=== PATIENT | male | born 1975 | race Caucasian/White ===

== ENCOUNTER 2019-05-26 22:12 | Emergency (ER) | payer OTHER ==
[2019-05-26 22:19] VITALS: TEMP 99.3
[2019-05-26 23:03] VITALS: RESP 18
--- NOTE | 2019-05-26 23:11 | ED ---
URI HPI - General Chief Complaint: Upper Respiratory Infection Stated Complaint: SOB Time Seen by Provider: 05/26/19 22:42 Source: patient Mode of arrival: ambulatory Limitations: no limitations - History of Present Illness Initial Comments: This patient is a 44-year-old man who presents to be evaluated for upper respiratory symptoms, including cough, congestion, fever and also myalgias. Patient states that he had coworker son had similar the coworker then also is manifesting symptoms. The patient states she has been using [id number] remedies without much relief. MD Complaint: fever, cough, nasal congestion Onset/Timin -: days(s) Severity: moderate Consistency: constant Improves With: nothing Worsens With: nothing Context: sick contacts Associated Symptoms: fever, myalgias, headache, nasal congestion, cough Treatments Prior to Arrival: "cold medicine" - Related Data Allergies Allergy/AdvReac Type Severity Reaction Status Date / Time No Known Allergies Allergy Verified 05/26/19 22:19 Review of Systems ROS Statement: Those systems with pertinent positive or pertinent negative responses have been documented in the HPI. ROS Other: All systems not noted in ROS Statement are negative. Constitutional: Reports: fever Eyes: Denies: eye pain ENT: Reports: congestion. Denies: ear pain, throat pain Respiratory: Reports: cough. Denies: dyspnea, wheezes, hemoptysis Cardiovascular: Denies: chest pain Gastrointestinal: Denies: abdominal pain, vomiting Genitourinary: Denies: dysuria, hematuria Musculoskeletal: Denies: back pain Skin: Denies: rash Neurological: Reports: headache. Denies: weakness, numbness, paresthesias Past Medical History Past Medical History: No Reported History History of Any Multi-Drug Resistant Organisms: None Reported Past Surgical History: No Surgical Hx Reported Past Psychological History: No Psychological Hx Reported Smoking Status: Current every day smoker Past Alcohol Use History: None Reported Past Drug Use History: None Reported General Exam Limitations: no limitations General appearance: alert, in no apparent distress Head exam: Present: atraumatic, normocephalic Eye exam: Present: normal appearance ENT exam: Present: normal oropharynx Neck exam: Present: normal inspection Respiratory exam: Present: normal lung sounds bilaterally. Absent: respiratory distress, wheezes, rales, rhonchi, stridor Cardiovascular Exam: Present: regular rate, normal rhythm, normal heart sounds. Absent: systolic murmur, diastolic murmur, rubs, gallop GI/Abdominal exam: Present: soft. Absent: distended, tenderness, guarding, rebound, rigid, mass Extremities exam: Present: normal inspection, normal capillary refill. Absent: pedal edema, calf tenderness Back exam: Present: normal inspection. Absent: CVA tenderness (R), CVA tenderness (L) Neurological exam: Present: alert Skin exam: Present: warm, dry, intact, normal color. Absent: rash Course Vital Signs 05/26/19 05/26/19 22:16 23:00 Temperature 99.3 F Pulse Rate 86 70 Respiratory 20 18 Rate Blood Pressure 170/107 152/89 O2 Sat by Pulse 98 96 Oximetry Medical Decision Making - Lab Data Lab Results 05/26/19 Range/Units 23:00 Influenza Type A RNA Not Detected (Not Detectd) Influenza Type B (PCR) Not Detected (Not Detectd) Disposition Clinical Impression: Viral infection Disposition: HOME SELF-CARE Condition: Good Instructions (If sedation given, give patient instructions): Viral Syndrome (ED) Is patient prescribed a controlled substance at d/c from ED?: No Referrals: None,Stated [Primary Care Provider] - 1-2 days
--- NOTE | 2019-05-26 23:21 | XR ---
EXAMINATION TYPE: XR chest 2V DATE OF EXAM: 05/26/2019 COMPARISON: NONE HISTORY: Cough and fever TECHNIQUE: FINDINGS: Heart and mediastinum are normal. Lungs are clear. Diaphragm is normal. Bony thorax appears normal. IMPRESSION: Normal chest. Normal heart.
[2019-05-27 00:40] VITALS: BP 107/70; PULSE 66
== END 2019-05-27 00:42 | disposition home or self-care (01) ==
LOC: EC 22:12
DX: B34.9 Viral infection, unspecified (principal); F17.200 Nicotine dependence, unspecified, uncomplicated
CPT/HCPCS: 71046; 87502; 99285

== ENCOUNTER 2020-05-19 13:08 | Observation (INO) | payer OTHER ==
[2020-05-19] MEDS ORDERED: ASPIRIN 81 MG PO STA (13:43)
[2020-05-19] MEDS ORDERED: NITROGLYCERIN OINT 1 INCH/GM PACKET TOPICAL STA (13:43)
--- NOTE | 2020-05-19 13:49 | ED ---
General Adult HPI - General Chief complaint: Shortness of Breath Stated complaint: Covid+, chest pain Time Seen by Provider: 05/19/20 13:10 Source: patient, RN notes reviewed, old records reviewed Mode of arrival: ambulatory Limitations: no limitations - History of Present Illness Initial comments: This is a 45-year-old male who presents emergency Department complaining of chest pain shortness of breath while exerting himself at work. Patient has been out of work the last 10 days since he was positive for COVID on May 10. Patient states she's been asymptomatic with COVID annually reason he got tested initially was because his son was positive for COVID. Patient states up until today he felt fine and then while at work doing his normal job he became short of breath and had anterior chest pain more or less diffusely. Patient denies any radiation of the pain. Patient denies any recent fever chills or cough. Patient denies any nausea patient denies any diaphoretic episodes. Patient denies any lightheadedness or dizziness. Patient denies any abdominal pain. Patient denies any swelling to the legs or calf tenderness. - Related Data Home Medications Medication Instructions Recorded Confirmed No Known Home Medications 05/19/20 05/19/20 Allergies Allergy/AdvReac Type Severity Reaction Status Date / Time No Known Allergies Allergy Verified 05/19/20 14:47 Review of Systems ROS Statement: Those systems with pertinent positive or pertinent negative responses have been documented in the HPI. ROS Other: All systems not noted in ROS Statement are negative. Past Medical History Past Medical History: No Reported History History of Any Multi-Drug Resistant Organisms: None Reported Past Surgical History: No Surgical Hx Reported Past Psychological History: No Psychological Hx Reported Smoking Status: Current every day smoker Past Alcohol Use History: None Reported Past Drug Use History: None Reported General Exam - General Exam Comments Initial Comments: GENERAL: Patient is well-developed and well-nourished. Patient is nontoxic and well- hydrated and is in mild distress. ENT: Neck is soft and supple. No significant lymphadenopathy is noted. Oropharynx is clear. Moist mucous membranes. Neck has full range of motion without eliciting any pain EYES: The sclera were anicteric and conjunctiva were pink and moist. Extraocular movements were intact and pupils were equal round and reactive to light. Eyelids were unremarkable. PULMONARY: Unlabored respirations. Good breath sounds bilaterally. No audible rales rhonchi or wheezing was noted. CARDIOVASCULAR: There is a regular rate and rhythm without any murmurs gallops or rubs. ABDOMEN: Soft and nontender with normal bowel sounds. SKIN: Skin is clear with no lesions or rashes and otherwise unremarkable. NEUROLOGIC: Patient is alert and oriented x3. Cranial nerves II through XII are grossly intact. Motor and sensory are also intact. Normal speech, volume and content. Symmetrical smile. MUSCULOSKELETAL: Normal extremities with adequate strength and full range of motion. No lower extremity swelling or edema. No calf tenderness. LYMPHATICS: No significant lymphadenopathy is noted PSYCHIATRIC: Normal psychiatric evaluation. Limitations: no limitations Course Vital Signs 05/19/20 13:13 Temperature 98.1 F Pulse Rate 96 Respiratory 22 Rate Blood Pressure 156/98 O2 Sat by Pulse 96 Oximetry Medical Decision Making - Medical Decision Making EKG shows normal sinus rhythm at 88 bpm [place] interval 150 QRS is 84 QT interval 358 QTC is 433. Patient's EKG shows no ST segment elevation or depression. Patient thought that nitroglycerin took away his pain. Patient's chest x-ray shows no acute abnormality. I started the patient on heparin this is unstable angina. I spoke with some physicians agreed to admit the patient admitted the patient and I wrote admitting orders and consult cardiology continued heparin and aspirin Nitropaste on the floor. - Lab Data Result diagrams: 05/19/20 13:55 05/19/20 13:55 Lab Results 05/19/20 05/19/20 05/19/20 Range/Units 13:55 13:55 13:55 WBC 8.3 (3.8-10.6) k/uL RBC 5.12 (4.30-5.90) m/uL Hgb 16.1 (13.0-17.5) gm/dL Hct 44.7 (39.0-53.0) % MCV 87.3 (80.0-100.0) fL MCH 31.5 (25.0-35.0) pg MCHC 36.1 (31.0-37.0) g/dL RDW 12.4 (11.5-15.5) % Plt Count 170 (150-450) k/uL MPV 8.3 Neutrophils % 75 % Lymphocytes % 18 % Monocytes % 5 % Eosinophils % 1 % Basophils % 0 % Neutrophils # 6.2 (1.3-7.7) k/uL Lymphocytes # 1.5 (1.0-4.8) k/uL Monocytes # 0.4 (0-1.0) k/uL Eosinophils # 0.1 (0-0.7) k/uL Basophils # 0.0 (0-0.2) k/uL PT 9.7 (9.0-12.0) sec INR 0.9 (<1.2) APTT 22.2 (22.0-30.0) sec D-Dimer 0.18 (<0.60) mg/L FEU Sodium 136 L (137-145) mmol/L Potassium 4.5 (3.5-5.1) mmol/L Chloride 103 (98-107) mmol/L Carbon Dioxide 23 (22-30) mmol/L Anion Gap 10 mmol/L BUN 25 H (9-20) mg/dL Creatinine 0.95 (0.66-1.25) mg/dL Est GFR (CKD-EPI)AfAm >90 (>60 ml/min/1.73 sqM) Est GFR (CKD-EPI)NonAf >90 (>60 ml/min/1.73 sqM) Glucose 113 H (74-99) mg/dL Calcium 9.7 (8.4-10.2) mg/dL Magnesium 2.1 (1.6-2.3) mg/dL Total Bilirubin 0.3 (0.2-1.3) mg/dL AST 28 (17-59) U/L ALT 25 (4-49) U/L Alkaline Phosphatase 88 (38-126) U/L Troponin I (0.000-0.034) ng/mL Total Protein 7.2 (6.3-8.2) g/dL Albumin 4.4 (3.5-5.0) g/dL 05/19/20 Range/Units 13:55 WBC (3.8-10.6) k/uL RBC (4.30-5.90) m/uL Hgb (13.0-17.5) gm/dL Hct (39.0-53.0) % MCV (80.0-100.0) fL MCH (25.0-35.0) pg MCHC (31.0-37.0) g/dL RDW (11.5-15.5) % Plt Count (150-450) k/uL MPV Neutrophils % % Lymphocytes % % Monocytes % % Eosinophils % % Basophils % % Neutrophils # (1.3-7.7) k/uL Lymphocytes # (1.0-4.8) k/uL Monocytes # (0-1.0) k/uL Eosinophils # (0-0.7) k/uL Basophils # (0-0.2) k/uL PT (9.0-12.0) sec INR (<1.2) APTT (22.0-30.0) sec D-Dimer (<0.60) mg/L FEU Sodium (137-145) mmol/L Potassium (3.5-5.1) mmol/L Chloride (98-107) mmol/L Carbon Dioxide (22-30) mmol/L Anion Gap mmol/L BUN (9-20) mg/dL Creatinine (0.66-1.25) mg/dL Est GFR (CKD-EPI)AfAm (>60 ml/min/1.73 sqM) Est GFR (CKD-EPI)NonAf (>60 ml/min/1.73 sqM) Glucose (74-99) mg/dL Calcium (8.4-10.2) mg/dL Magnesium (1.6-2.3) mg/dL Total Bilirubin (0.2-1.3) mg/dL AST (17-59) U/L ALT (4-49) U/L Alkaline Phosphatase (38-126) U/L Troponin I <0.012 (0.000-0.034) ng/mL Total Protein (6.3-8.2) g/dL Albumin (3.5-5.0) g/dL Critical Care Time Critical Care Time: Yes Total Critical Care Time: 35 Disposition Clinical Impression: Unstable angina Disposition: ADMITTED IP TO THIS [facility] Referrals: None,Stated [Primary Care Provider] - 1-2 days Time of Disposition: 14:54
[2020-05-19 14:14] LABS: Basophils % (A) 0 %; Eosinophils # (A) 0.1 k/uL (0-0.7); Eosinophils % (A) 1 %; HCT 44.7 % (39.0-53.0); HGB 16.1 gm/dL (13.0-17.5); Lymphocytes # (A) 1.5 k/uL (1.0-4.8); Lymphocytes % (A) 18 %; MCH 31.5 pg (25.0-35.0); MCHC 36.1 g/dL (31.0-37.0); MCV 87.3 fL (80.0-100.0); Mean Platelet Volume 8.3; Monocytes # (A) 0.4 k/uL (0-1.0); Monocytes % (A) 5 %; Neutrophils # (A) 6.2 k/uL (1.3-7.7); Neutrophils % (A) 75 %; Platelet Count 170 k/uL (150-450); RBC 5.12 m/uL (4.30-5.90); RDW 12.4 % (11.5-15.5); WBC 8.3 k/uL (3.8-10.6)
--- NOTE | 2020-05-19 14:14 | XR ---
EXAMINATION TYPE: XR chest 2V DATE OF EXAM: 05/19/2020 COMPARISON: 05/26/2019 HISTORY: Chest pain TECHNIQUE: Frontal and lateral views of the chest are obtained. FINDINGS: There is no focal air space opacity. No evidence for pneumothorax. No pleural effusion. The cardiac silhouette size is within normal limits. The osseous structures are grossly intact. IMPRESSION: 1. No acute cardiopulmonary process.
[2020-05-19 14:26] LABS: ALT 25 U/L (4-49); AST 28 U/L (17-59); African American GFR (CKD) >90 (>60 ml/min/1.73 sqM); Albumin 4.4 g/dL (3.5-5.0); Alkaline Phosphatase 88 U/L (38-126); Anion Gap 10 mmol/L; Blood Urea Nitrogen 25 mg/dL (9-20); Calcium 9.7 mg/dL (8.4-10.2); Carbon Dioxide 23 mmol/L (22-30); Chloride 103 mmol/L (98-107); Glucose 113 mg/dL (74-99); Magnesium 2.1 mg/dL (1.6-2.3); Non-African American GFR(CKD) >90 (>60 ml/min/1.73 sqM); Potassium 4.5 mmol/L (3.5-5.1); Sodium 136 mmol/L (137-145); Total Bilirubin 0.3 mg/dL (0.2-1.3); Total Protein 7.2 g/dL (6.3-8.2)
[2020-05-19 14:36] LABS: D-Dimer 0.18 mg/L FEU (<0.60); INR 0.9 (<1.2); Partial Thromboplastin Time 22.2 sec (22.0-30.0); Prothrombin Time 9.7 sec (9.0-12.0)
[2020-05-19] MEDS ORDERED: HEPARIN SODIUM,PORCINE 5,000 UNIT/ML 1 ML VIAL IV ONE (14:53)
[2020-05-19] MEDS ORDERED: NITROGLYCERIN SL TABS 0.4 MG TAB SUBLINGUAL PRN (14:55)
[2020-05-19] MEDS ORDERED: HEPARIN SOD,PORK IN 0.45% NACL 25,000 UNIT in 0.45% NACL 1 250ML.BAG IV SCH (15:00)
[2020-05-19] MEDS ORDERED: ACETAMINOPHEN TAB 325 MG TAB PO PRN (19:42)
[2020-05-19] MEDS ORDERED: NALOXONE 0.4 MG/ML 1 ML VIAL IV PRN (19:42)
--- NOTE | 2020-05-19 19:42 | P.HPIM ---
History of Present Illness H&P Date: 05/19/20 (delayed charting seen at 1600 ) Chief Complaint: chest pain Patient is a 45 yo CM with tobacco abuse, obesity, and family hx of early conornary artery disease who presented to the hospital with complaints of chest pain. In the ER he underwent an extensive evaluation. On arrival he was lightly hypertensive with a blood pressure of 156/98. Initial laboratory analysis demonstrated a sodium of 136, BUN 25, glucose 113, troponin was negative. D-dimer negative. Chest x-ray showed no acute process. EKG did not demonstrate any signs of ischemia. He had a Nitropatch placed in the ER which relieved his chest discomfort. Arrangements were made for observation. Of note patient had covert approximately 10 days ago and just returned to work today. Patient seen and examined at bedside. He reports that for the last 10 days he has been off of work due to Covid. He was initially asymptomatic and got tested because his son was positive. Today he returned to work. He was up and ambulating and noted some shortness of breath. As he continued to exert himself he had increasing shortness of breath accompanied by an odd sensation in his chest. He does not describe it as overt chest pain but more of a numbness or constricting-type feeling. He reports that he was slightly lightheaded. He felt his pulse due to palpitations and it was fast at approximately 118. He was also drenched in sweat. He denies any numbness or tingling down his arms or up into his jaw. He then presented to the ER for further evaluation as he was worried about his Covid. Repeat Covid antigen testing in the ER was negative. Chest pain and shortness of breath has since resolved. He is not currently following with family physician. Review of Systems Pertinent positives and negatives as discussed in HPI, a complete review of systems was performed and all other systems are negative. Past Medical History Past Medical History: No Reported History History of Any Multi-Drug Resistant Organisms: None Reported Past Surgical History: No Surgical Hx Reported Past Psychological History: No Psychological Hx Reported Smoking Status: Current every day smoker Past Alcohol Use History: None Reported Past Drug Use History: None Reported Additional History: Has smoked one pack per day since age 11 - Past Family History Father Additional Family Medical History / Comment(s): Coronary artery bypass grafting in his 50s. Medications and Allergies Home Medications Medication Instructions Recorded Confirmed Type No Known Home Medications 05/19/20 05/19/20 History Allergies Allergy/AdvReac Type Severity Reaction Status Date / Time No Known Allergies Allergy Verified 05/19/20 14:47 Physical Exam Osteopathic Statement: *. No significant issues noted on an osteopathic structural exam other than those noted in the History and Physical/Consult. Vitals: Vital Signs Temp Pulse Resp BP Pulse Ox 05/19/20 16:26 69 18 119/66 98 05/19/20 15:30 77 18 124/72 98 05/19/20 13:13 98.1 F 96 22 156/98 96 Intake and Output 05/19/20 05/19/20 05/19/20 06:59 14:59 22:59 Other: Weight 113.398 kg General: non toxic, no distress, appears at stated age Derm: warm, dry Head: atraumatic, normocephalic, symmetric Eyes: EOMI, no lid lag, anicteric sclera, pupils equal round reactive to light ENT: Nose and ears atraumatic, no thrush, no pharyngeal erythema Neck: No thyromegaly, no cervical lymphadenopathy, trachea midline, supple Mouth: no lip lesion, mucus membranes moist Cardiovascular: S1S2 reg, no murmur, positive posterior tibial pulse bilateral, no edema, capillary refill less than 2 seconds Lungs: clear to ascultation bilateral, no ronchi, no rales, no wheeze, no accessory muscle use Abdominal: soft, nontender to palpation, no guarding, no appreciable organomegaly, normal bowel sounds Ext: no gross muscle atrophy, muscle strength muscle strength 5 out of 5 in all 4 extremities, no contractures Neuro: CN II-XI grossly intact, light touch intact all 4 extremities, finger to nose within normal limits, Psych: Alert, oriented, appropriate affect Results CBC & Chem 7: 05/19/20 13:55 05/19/20 13:55 Labs: Abnormal Lab Results - Last 24 Hours (Table) 05/19/20 Range/Units 13:55 Sodium 136 L (137-145) mmol/L BUN 25 H (9-20) mg/dL Glucose 113 H (74-99) mg/dL Chest x-ray: report reviewed Thrombosis Risk Factor Assmnt - DVT/VTE Prophylaxis DVT/VTE Prophylaxis: Low risk, early ambulation encouraged Assessment and Plan Assessment: Chest pain and the recent starting of CovID19 -Trend troponins -Aspirin -Heparin drip -Nitro ointment -Telemetry -Cardiology consultation -Nothing by mouth after midnight Tobacco abuse -Cessation -Nicotine replacement Obesity with BMI 35.9 -Has not had follow-up with health care will screen with lipid profile and hemoglobin A1c. Social stressor -No insurance -[facility] The patient is placed in observation with an anticipated less than 2 midnight stay for evaluation of chest pain. DVT prophylaxis: SCDs Discussed with: patient, ed physician Anticipated discharge date: in AM Anticipated discharge place: Home A total of 35 minutes was spent on the care of this complex patient more than 50% of the time was spent in counseling and care coordination.
[2020-05-19] MEDS: NITROGLYCERIN OINT 1 INCH/GM PACKET TOPICAL SCH (21:52)
[2020-05-20] MEDS: NITROGLYCERIN OINT 1 INCH/GM PACKET TOPICAL SCH ×2 (00:26→05:36)
[2020-05-20] MEDS ORDERED: HEPARIN SODIUM,PORCINE 5,000 UNIT/ML 1 ML VIAL IV PRN (00:27)
[2020-05-20 02:55] VITALS: TEMP 98
[2020-05-20 06:34] LABS: Cholesterol 182 mg/dL (<200); HDL Cholesterol 47 mg/dL (40-60); LDL Cholesterol,Calculated 105 mg/dL (0-99); Magnesium 2.3 mg/dL (1.6-2.3); Triglycerides 148 mg/dL (<150)
[2020-05-20 07:58] VITALS: BP 136/63; PULSE 65; RESP 16
[2020-05-20] MEDS ORDERED: ASPIRIN 325 MG TAB PO SCH (09:00)
--- NOTE | 2020-05-20 10:46 | P.CRDCN ---
History of Present Illness History of present illness: HISTORY OF PRESENTING ILLNESS This is a pleasant 45-year-old male past medical history significant for nicotine dependence (smokes 1ppd), family history of CAD (father had OK in his 50s). He does not follow with a pourer off We have been asked to see in consultation for chest pain. Patient states that he was Covid positive on May 10 at [facility]. Believes it was from his son who also tested positive. He states that he started to go back to work yesterday, he works in an auto shop. 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 He states he rested. Diaphoresis resolved, but his palpitations persisted. About an hour later he started having some her mid chest pressure, nonradiating. His chest pressure did increase with some activity at work. He did feel anxious thinking he may have COVID again. He did feel some shortness of breath. He continued to finish work. He checked his pulse ox and his heart rate was fast around 118. He states his palpitation feeling continued for a total of 4 hours from the start of the event and did not subside, so he decided to present to the emergency department. Patient denies any current cough, chest pain, shortness of breath, lightheadedness, dizziness. He denies symptoms of orthopnea, PND. He denies alcohol use, illicit drug use. Denies history of OK, stroke, diabetes, hypertension. Denies ever having a cardiac catheterization before. EKG on arrival revealed normal sinus rhythm, HR 88, no significant ST-T wave abnormali ties. Second EKG also revealed normal sinus rhythm, HR 60, no significant ST-T wave abnormalities. Chest x-ray with no acute cardiopulmonary process. Patient's COVID-19 test was negative on arrival. Laboratory data reviewed, troponins negative 3, d-dimer 0.18, potassium 4.5, magnesium 2.1, sodium 136, creatinine 0.95, WBC 8.3, hemoglobin 16.9, platelets 170 Vital signs blood pressure 136/63, heart rate 65, afebrile, 96% on room air. Telemetry reviewed patient in sinus rhythm. Patient does not take any cardiac medications. REVIEW OF SYSTEMS At the time of my exam: CONSTITUTIONAL: +diaphoresis Denies fever or chills. CARDIOVASCULAR: +chest pain, + palpitations, +shortness of breath. Denies orthopnea, PND RESPIRATORY: Denies cough. GASTROINTESTINAL: Denies abdominal pain, diarrhea, constipation, nausea or vomiting. MUSCULOSKELETAL: Denies myalgias. NEUROLOGIC: Denies numbness, tingling, headacbe or weakness. ENDOCRINE: Denies fatigue, weight change, polydipsia or polyurina. GENITOURINARY: Denies burning, hematuria or urgency with micturation. HEMATOLOGIC: Denies history of anemia or bleeding. PHYSICAL EXAMINATION CONSTITUTIONAL: Calm, No apparent distress. HEENT: Head is normocephalic. Pupils are equal, round. Sclerae anicteric. Mucous membranes of the mouth are moist. No JVD. No carotid bruit. CHEST EXAMINATION: Lungs are clear to auscultation. No chest wall tenderness is noted on palpation or with deep breathing. HEART EXAMINATION: Regular rate and rhythm. S1, S2 heard. No murmurs, gallops or rub. ABDOMEN: Soft, nontender. Positive bowel sounds. EXTREMITIES: 2+ peripheral pulses, no lower extremity edema and no calf tenderness. SKIN: intact NEUROLOGIC EXAMINATION: Patient is awake, alert and oriented x3. ASSESSMENT Chest pain - atypical, acute coronary event ruled out- troponin negative x 3, EKG sinus rhythm with no significant ST-T wave abnormalities Palpitations PLAN -2D echo -Exercise stress echo -If no acute findings, Will place Heart monitor on discharge to rule out any arrhythmia causing patient's palpitations and symptoms. Patient will follow up in the office with Dr. Cruz. Nurse Practitioner note has been reviewed, I agree with a documented findings and plan of care. Patient was seen and examined. Past Medical History Past Medical History: No Reported History History of Any Multi-Drug Resistant Organisms: None Reported Past Surgical History: No Surgical Hx Reported Past Psychological History: No Psychological Hx Reported Smoking Status: Current every day smoker Past Alcohol Use History: None Reported Past Drug Use History: None Reported - Past Family History Father Additional Family Medical History / Comment(s): Coronary artery bypass grafting in his 50s. Medications and Allergies Home Medications Medication Instructions Recorded Confirmed Type No Known Home Medications 05/19/20 05/19/20 History Allergies Allergy/AdvReac Type Severity Reaction Status Date / Time No Known Allergies Allergy Verified 05/19/20 14:47 Physical Exam Vitals: Vital Signs Temp Pulse Pulse Resp BP BP Pulse Ox 05/20/20 02:59 78 05/20/20 01:48 98.0 F 78 18 114/74 98 05/19/20 20:50 97.5 F L 71 118/70 96 05/19/20 20:00 98.2 F 75 18 116/60 98 05/19/20 16:26 69 18 119/66 98 05/19/20 15:30 77 18 124/72 98 05/19/20 13:13 98.1 F 96 22 156/98 96 Intake and Output 05/19/20 05/20/20 05/20/20 22:59 06:59 14:59 Intake Total 81.163 Balance 81.163 Intake: Intake, IV Titration 81.163 Amount Heparin Sod,Pork in 0.45% 81.163 NaCl 25,000 unit In 0.45 % NaCl 1 250ml.bag @ 8.8 UNITS/KG/HR 9.979 mls/hr IV .Q24H [facility] Rx#: [id number] Other: Voiding Method Toilet Toilet # Voids 1 Weight 113.398 kg Results 05/19/20 13:55 05/19/20 13:55 Cardiac Enzymes 05/19/20 05/19/20 05/19/20 Range/Units 13:55 13:55 17:51 AST 28 (17-59) U/L Troponin I <0.012 <0.012 (0.000-0.034) ng/mL 05/19/20 Range/Units 20:36 AST (17-59) U/L Troponin I <0.012 (0.000-0.034) ng/mL Coagulation 05/19/20 05/19/20 05/20/20 Range/Units 13:55 22:53 05:15 PT 9.7 (9.0-12.0) sec APTT 22.2 26.3 45.7 H (22.0-30.0) sec Lipids 05/20/20 Range/Units 05:15 Triglycerides 148 (<150) mg/dL Cholesterol 182 (<200) mg/dL HDL Cholesterol 47 (40-60) mg/dL CBC 05/19/20 Range/Units 13:55 WBC 8.3 (3.8-10.6) k/uL RBC 5.12 (4.30-5.90) m/uL Hgb 16.1 (13.0-17.5) gm/dL Hct 44.7 (39.0-53.0) % Plt Count 170 (150-450) k/uL Comprehensive Metabolic Panel 05/19/20 Range/Units 13:55 Sodium 136 L (137-145) mmol/L Potassium 4.5 (3.5-5.1) mmol/L Chloride 103 (98-107) mmol/L Carbon Dioxide 23 (22-30) mmol/L BUN 25 H (9-20) mg/dL Creatinine 0.95 (0.66-1.25) mg/dL Glucose 113 H (74-99) mg/dL Calcium 9.7 (8.4-10.2) mg/dL AST 28 (17-59) U/L ALT 25 (4-49) U/L Alkaline Phosphatase 88 (38-126) U/L Total Protein 7.2 (6.3-8.2) g/dL Albumin 4.4 (3.5-5.0) g/dL Current Medications Generic Name Dose Route Start Last Admin Trade Name Freq PRN Reason Stop Dose Admin Acetaminophen 650 mg 05/19/20 19:42 Acetaminophen Tab 325 Mg Tab PO Q6HR PRN Mild Pain or Fever > 100.5 Aspirin 325 mg 05/20/20 09:00 Aspirin 325 Mg Tab PO DAILY [facility] Heparin Sodium (Porcine) 0 unit 05/20/20 00:27 05/20/20 00:39 Heparin Sodium,Porcine 5,000 Unit/Ml 1 Ml Vial IV 4,000 unit PER PROTOCOL PRN Administration Low PTT Protocol Heparin Sodium/Sodium Chloride 250 mls @ 9.979 mls/hr 05/19/20 15:00 05/20/20 00:33 25,000 unit/ Sodium Chloride IV 11.8 units/kg/hr .Q24H LIUDMILA 13.381 mls/hr Titration Protocol 8.8 UNITS/KG/HR Naloxone HCl 0.2 mg 05/19/20 19:42 Naloxone 0.4 Mg/Ml 1 Ml Vial IV Q2M PRN Opioid Reversal Nitroglycerin 0.4 mg 05/19/20 14:55 Nitroglycerin Sl Tabs 0.4 Mg Tab SUBLINGUAL Q5M PRN Chest Pain Nitroglycerin 1 inch 05/19/20 18:00 05/20/20 05:36 Nitroglycerin Oint 1 Inch/Gm Packet TOPICAL Not Given Q6HR [facility] Intake and Output 05/19/20 05/20/20 05/20/20 22:59 06:59 14:59 Intake Total 81.163 Balance 81.163 Intake: Intake, IV Titration 81.163 Amount Heparin Sod,Pork in 0.45% 81.163 NaCl 25,000 unit In 0.45 % NaCl 1 250ml.bag @ 8.8 UNITS/KG/HR 9.979 mls/hr IV .Q24H [facility] Rx#: [id number] Other: Voiding Method Toilet Toilet # Voids 1 Weight 113.398 kg 05/19/20 13:55 05/19/20 13:55
--- NOTE | 2020-05-20 12:11 | P.STRESS ---
- Stress Test Note Stress Test Results/Findings: Exam Performed: stress echo exercise Exam Date: 05/20/20 Reason for Exam: CHEST PAIN Height: 5 ft 10 in Weight: 113.4 kg Protocol: STRESS ECHO Stage: 2 Duration of Exercise: 7:30 Resting Heart Rate: 87 Resting Blood Pressure: 124/57 Maximum Achieved Heart Rate: 159 Maximum Achieved Blood Pressure: 172/74 85% PMHR: 149 100% PMHR: 175 METS: 9.1 Technologist Comment: Stress Test Results/Findings: This is a 45-year-old gentleman with history of recent cold infection was admitted to the hospital with complaints of palpitations and chest pain and shortness of breath. Stress data: Baseline EKG showed sinus rhythm with normal DE and QRS duration. Blood pressure at rest is 03/23/1956 with a pulse rate of 87. Patient walked on a Attila protocol for 7 minutes and 30 seconds reaching a maximum heart rate of 159 with a blood pressure 172/74. EKGs taken during his after exercise did not reveal any significant changes from baseline. Patient did not experience any chest pain. Echo data: Baseline echo images show normal wall motion and thickening. Exercise echo images showed augmentation of wall motion and thickening in all segments. Final impression: #1. Negative stress test #2. Negative stress echo.
[2020-05-20 12:43] LABS: Hemoglobin A1C 4.6 % (4.0-6.0)
--- NOTE | 2020-05-20 12:52 | ECHOF ---
Referral Reason:chest pain MEASUREMENTS -------- HEIGHT: 182.9 cm WEIGHT: 113.4 kg BP: RVIDd: 3.1 cm (< 3.3) IVSd: 1.3 cm (0.6 - 1.1) LVIDd: 4.7 cm (3.9 - 5.3) LVPWd: 1.3 cm (0.6 - 1.1) IVSs: 1.6 cm LVIDs: 3.6 cm LVPWs: 1.3 cm LAESV Index (A-L): 21.21 ml/m Ao Diam: 3.0 cm (2.0 - 3.7) AV Cusp: 2.2 cm (1.5 - 2.6) MV EXCURSION: 23.225 mm (> 18.000) MV EF SLOPE: 109 mm/s (70 - 150) EPSS: 0.5 cm MV E Alonso: 0.81 m/s MV DecT: 135 ms MV A Alonso: 0.50 m/s MV E/A Ratio: 1.61 RAP: 5.00 mmHg RVSP: 18.61 mmHg FINDINGS -------- Sinus rhythm. Pt had Covid 05/18. LV size, wall thickness and systolic function are normal, with an EF greater than 55%. The left loc tricular size is normal. The right ventricle is normal in size. Normal LA size by volume 22+/-6 ml/m2. The right atrial size is normal. There is mild aortic valve sclerosis. There is no evidence of aortic regurgitation. Mild mitral annular calcification present. Mild mitral regurgitation is present. Mild tricuspid regurgitation present. Right ventricular systolic pressure is normal at < 35 mmHg. There is no pulmonic regurgitation present. The aortic root size is normal. There is no pericardial effusion. CONCLUSIONS -------- 1. Pt had Covid 3. 2. LV size, wall thickness and systolic function are normal, with an EF greater than 55%. 3. The left ventricular size is normal. 4. The right ventricle is normal in size. 5. Normal LA size by volume 22+/-6 ml/m2. 6. The right atrial size is normal. 7. There is mild aortic valve sclerosis. 8. Mild mitral annular calcification present. 9. Mild mitral regurgitation is present. 10. Mild tricuspid regurgitation present. 11. The aortic root size is normal. 12. There is no pericardial effusion. VARNISH MELTER HELPER: Camila Lozano RDCS
--- NOTE | 2020-05-20 13:47 | P.DS ---
Providers Date of admission: 05/19/20 15:09 Expected date of discharge: 05/20/20 Attending physician: Allyson Nixon DO Consults: 05/19/20 14:55 Consult Physician Urgent Consulting Provider: [facility] Consult Reason/Comments: Unstable angina Do you want consulting provider notified?: Yes Primary care physician: Stated None Hospital Course: Patient left the hospital prior to my evaluation. The nursing staff called and informed me that patient pulled his IV and walked out the floor without talking to anyone and without signing AMA paperwork. I have not had a chance to assess the patient this morning as he wasn't a cardiac stress test. Further details about this observation stay please refer to the electronic chart. Plan - Discharge Summary New Discharge Prescriptions: No Action No Known Home Medications Discharge Medication List No Known Home Medications 05/19/20 [History] Follow up Appointment(s)/Referral(s): None,Stated [Primary Care Provider] - 1-2 days Matti Cruz MD [STAFF PHYSICIAN] - 2 Weeks Discharge Disposition: Left Against Medical Advice
--- NOTE | 2020-05-21 14:50 | ECHOS ---
Stress Test Results/Findings: Exam Performed: stress echo exercise Exam Date: 05/20/20 Reason for Exam: CHEST PAIN Height: 5 ft 10 in Weight: 113.4 kg Protocol: STRESS ECHO Stage: 2 Duration of Exercise: 7:30 Resting Heart Rate: 87 Resting Blood Pressure: 124/57 Maximum Achieved Heart Rate: 159 Maximum Achieved Blood Pressure: 172/74 85% PMHR: 149 100% PMHR: 175 METS: 9.1 Technologist Comment: Stress Test Results/Findings: This is a 45-year-old gentleman with history of recent cold infection was admitted to the hospital with complaints of palpitations and chest pain and shortness of breath. Stress data: Baseline EKG showed sinus rhythm with normal OK and QRS duration. Blood pressure at rest is 03/23/1956 with a pulse rate of 87. Patient walked on a Attila protocol for 7 minutes and 30 seconds reaching a maximum heart rate of 159 with a blood pressure 172/74. EKGs taken during his after exercise did not reveal any significant changes from baseline. Patient did not experience any chest pain. Echo data: Baseline echo images show normal wall motion and thickening. Exercise echo images showed augmentation of wall motion and thickening in all segments. Final impression: #1. Negative stress test #2. Negative stress echo. MARY ELLEN
== END 2020-05-20 12:50 | disposition left against medical advice (07) ==
LOC: EC 13:08 → 6NMEDSUR 15:09
PROVIDERS: ADMIT Internal Medicine; ATTEND Internal Medicine
DX: R07.89 Other chest pain (principal); R06.02 Shortness of breath; R00.2 Palpitations; R61 Generalized hyperhidrosis; R42 Dizziness and giddiness; E66.9 Obesity, unspecified; Z68.35 Body mass index [BMI] 35.0-35.9, adult; F17.210 Nicotine dependence, cigarettes, uncomplicated; Z86.16 Personal history of COVID-19; Z82.49 Family history of ischemic heart disease and other diseases of the circulatory system; Z53.29 Procedure and treatment not carried out because of patient's decision for other reasons
CPT/HCPCS: 96376 ×2; 96366 ×3; 93005 ×2; 96365; 99291; 36415; 93306; 93351; 85379; 80061; 80053; 84443; 83735 ×2; 84484; 85025; 85610; 85730 ×2; 83036; 87635; 71046; G0378 ×2; J1644 ×3

== ENCOUNTER 2020-09-18 21:28 | Emergency (ER) | payer OTHER ==
[2020-09-18 21:32] VITALS: BP 152/90; PULSE 51; RESP 19; TEMP 97.6
[2020-09-18] MEDS ORDERED: CEPHALEXIN 500MG STARTER PACK 4 CAP BTL PO STA (21:48)
[2020-09-18] MEDS ORDERED: LIDOCAINE 1%-EPI 1:100,000 20 ML VIAL SQ STA (21:50)
[2020-09-18] MEDS ORDERED: DIPH,PERTUS(ACELL)TETVAC-LF 0.5 ML VIAL IM ONE (21:50)
--- NOTE | 2020-09-18 21:55 | ED ---
Wound/Laceration HPI - General Chief Complaint: Wound/Laceration Stated Complaint: R hand laceration Time Seen by Provider: 09/18/20 21:34 Source: patient Mode of arrival: ambulatory - History of Present Illness Initial Comments: 45-year-old male presents to the emergency department with the chief complaint laceration. This occurred about one hour prior to arrival. Patient reports he was using a chainsaw accidentally lacerated the dorsal aspect of his right hand. He reports full range of motion. Tetanus not up-to-date. Not on blood thinners. Reports minimal pain. Denies any weakness or paresthesias in the hand. - Related Data Previous Rx's Medication Instructions Recorded Cephalexin [Keflex] 500 mg PO TID #15 cap 09/18/20 Allergies Allergy/AdvReac Type Severity Reaction Status Date / Time No Known Allergies Allergy Verified 09/18/20 21:32 Review of Systems ROS Statement: Those systems with pertinent positive or pertinent negative responses have been documented in the HPI. ROS Other: All systems not noted in ROS Statement are negative. Past Medical History Past Medical History: No Reported History History of Any Multi-Drug Resistant Organisms: None Reported Past Surgical History: No Surgical Hx Reported Past Psychological History: No Psychological Hx Reported Smoking Status: Current every day smoker Past Alcohol Use History: None Reported Past Drug Use History: None Reported - Past Family History Father Additional Family Medical History / Comment(s): Coronary artery bypass grafting in his 50s. General Exam Limitations: no limitations General appearance: alert, in no apparent distress, obese Head exam: Present: atraumatic, normocephalic, normal inspection Eye exam: Present: normal appearance, PERRL, EOMI Pupils: Present: normal accommodation ENT exam: Present: normal exam, normal oropharynx, mucous membranes moist Neck exam: Present: normal inspection, full ROM. Absent: tenderness, lymphadenopathy Respiratory exam: Present: normal lung sounds bilaterally. Absent: respiratory distress, wheezes, rales, rhonchi Cardiovascular Exam: Present: regular rate, normal rhythm, normal heart sounds. Absent: systolic murmur Extremities exam: Present: full ROM (Full range of motion in the thumb and all the fingers in the right hand.), tenderness (Tenderness touch at the injured sit e), normal capillary refill. Absent: normal inspection (570 laceration to the dorsal aspect of the right hand), pedal edema, joint swelling, calf tenderness Back exam: Present: normal inspection, full ROM. Absent: tenderness, CVA tenderness (R), CVA tenderness (L) Neurological exam: Present: alert, oriented X3 Psychiatric exam: Present: normal affect, normal mood Skin exam: Present: warm, dry, intact, normal color Course Vital Signs 09/18/20 21:29 Temperature 97.6 F Pulse Rate 51 L Respiratory 19 Rate Blood Pressure 152/90 O2 Sat by Pulse 98 Oximetry Procedures - Laceration Laceration #1 Consent Obtained: verbal consent Indication: laceration Site: hand Size (cm): 5 Description: linear, clean Depth: simple, single layer Sedation/Analgesia: none Anesthetic Used: lidocaine 1%, with epi Anesthesia Technique: local infiltration Amount (mls): 5 Pre-repair: irrigated extensively, deep structures intact Type of Sutures: nylon Size of Sutures: 4-0 Number of Sutures: 5 Technique: simple, interrupted Patient Tolerated Procedure: well, no complications Medical Decision Making - Medical Decision Making 45-year-old male presents to emergency Department with a chief complaint of a chainsaw injury. Physical examination, this does not appear to be an arterial bleed. Laceration site was thoroughly irrigated with saline and Betadine. Patient tolerate the procedure well. Local anesthesia with lidocaine and epinephrine. He is otherwise neurovascularly intact. Repair was performed with 5 sutures. Patient advised to return for suture removal. Tetanus was updated. Patient will be started on Keflex for prophylaxis. Return parameters were thoroughly discussed the patient was attending agreeable. Case discussed with physician. Disposition Clinical Impression: Laceration, Contact with chainsaw as cause of accidental injury Disposition: HOME SELF-CARE Condition: Stable Instructions (If sedation given, give patient instructions): Care For Your Stitches (DC), Laceration (DC) Additional Instructions: Please return to the emergency room in 8-10 days to have sutures removed. Please watch for any signs of infection which may include increased pain, swel ling, redness, fever or chills. Please return to emergency room for any signs of infection do occur. Please use clean soap and water over the area to prevent scabbing over your stitches. Please leave wound covered for the first 24-48 hours and then leave wound open to air. Please return to the emergency room for any other concerns. Prescriptions: Cephalexin [Keflex] 500 mg PO TID #15 cap Is patient prescribed a controlled substance at d/c from ED?: No Referrals: None,Stated [Primary Care Provider] - 1-2 days Time of Disposition: 21:55
== END 2020-09-18 22:07 | disposition home or self-care (01) ==
LOC: EC 21:28
DX: S61.411A Laceration without foreign body of right hand, initial encounter (principal); E66.9 Obesity, unspecified; F17.200 Nicotine dependence, unspecified, uncomplicated; Z68.33 Body mass index [BMI] 33.0-33.9, adult; W29.3XXA Contact with powered garden and outdoor hand tools and machinery, initial encounter
CPT/HCPCS: 12002; 90471; 90715; 99282

== ENCOUNTER 2024-06-17 15:31 | Emergency (ER) | payer SELFPAY ==
[2024-06-17] MEDS ORDERED: KETOROLAC 15 MG/ML 1 ML VIAL IVP STA (16:06)
[2024-06-17] MEDS: SODIUM CHLORIDE 0.9% 1,000 ML IV ONE (16:36)
--- NOTE | 2024-06-17 16:38 | ED ---
General Adult HPI - General Chief complaint: Skin/Abscess/Foreign Body Stated complaint: Infected cyst on lower back Time Seen by Provider: 06/17/24 15:41 Source: patient, RN notes reviewed Mode of arrival: ambulatory Limitations: no limitations - History of Present Illness Initial comments: 49-year-old male presents to the emergency department for evaluation of cyst on his back. Patient states that he has been on antibiotics for this and states that the symptoms seem to not be improving. He states that he attempted to get into his surgeon but he states that they are unable to do anything and is still infected. He denies any fever, chills, nausea, vomiting. - Related Data Previous Rx's Medication Instructions Recorded Cephalexin [Keflex] 500 mg PO TID #15 cap 09/18/20 Allergies Allergy/AdvReac Type Severity Reaction Status Date / Time No Known Allergies Allergy Verified 06/17/24 15:39 Review of Systems ROS Statement: Those systems with pertinent positive or pertinent negative responses have been documented in the HPI. ROS Other: All systems not noted in ROS Statement are negative. Past Medical History Past Medical History: No Reported History History of Any Multi-Drug Resistant Organisms: None Reported Past Surgical History: No Surgical Hx Reported Past Psychological History: No Psychological Hx Reported Smoking Status: Current every day smoker Past Alcohol Use History: None Reported Past Drug Use History: None Reported - Past Family History Father Additional Family Medical History / Comment(s): Coronary artery bypass grafting in his 50s. General Exam Limitations: no limitations General appearance: alert, in no apparent distress Head exam: Present: atraumatic, normocephalic, normal inspection Eye exam: Present: normal appearance, PERRL, EOMI. Absent: scleral icterus, conjunctival injection, periorbital swelling ENT exam: Present: normal exam, mucous membranes moist Neck exam: Present: normal inspection. Absent: tenderness, meningismus, lymphadenopathy Respiratory exam: Present: normal lung sounds bilaterally. Absent: respiratory distress, wheezes, rales, rhonchi, stridor Cardiovascular Exam: Present: regular rate, normal rhythm, normal heart sounds. Absent: systolic murmur, diastolic murmur, rubs, gallop, clicks Extremities exam: Present: normal inspection, full ROM, normal capillary refill. Absent: tenderness, pedal edema, joint swelling, calf tenderness Neurological exam: Present: alert, oriented X3 Psychiatric exam: Present: normal affect, normal mood Skin exam: Present: warm, dry, other (Cystic mass measuring 1 and half centimeters on the low back with purulent discharge) Course Vital Signs 06/17/24 06/17/24 15:36 18:36 Temperature 97.7 F 97.8 F Pulse Rate 89 64 Respiratory 18 15 Rate Blood Pressure 192/113 167/93 O2 Sat by Pulse 98 98 Oximetry Medical Decision Making - Medical Decision Making Was pt. sent in by a medical professional or institution (, DINAH, MAINTENANCE PAINTER APPRENTICE, urgent care, hospital, or [facility]...) When possible be specific @ -No Did you speak to anyone other than the patient for history (EMS, parent, family, police, friend...)? What history was obtained from this source @ -No Did you review nursing and triage notes (agree or disagree)? Why? @ -I reviewed and agree with nursing and triage notes Were old charts reviewed (outside hosp., previous admission, EMS record, old EKG, old radiological studies, urgent care reports/EKG's, [facility] records)? Report findings @ -No old charts were reviewed Differential Diagnosis (chest pain, altered mental status, abdominal pain women, abdominal pain men, vaginal bleeding, weakness, fever, dyspnea, syncope, headache, dizziness, GI bleed, back pain, seizure, CVA, palpatations, mental h ealth, musculoskeletal)? @ -Abscess, cyst, pilonidal disease, this is not obvious to EKG interpreted by me (3pts min.). @ -None X-rays interpreted by me (1pt min.). @ -None done CT interpreted by me (1pt min.). @ -None done U/S interpreted by me (1pt. min.). @ -None done What testing was considered but not performed or refused? (CT, X-rays, U/S, labs)? Why? @ -None What meds were considered but not given or refused? Why? @ -None Did you discuss the management of the patient with other professionals (professionals i.e. DINAH Hennessy, MAINTENANCE PAINTER APPRENTICE, lab, RT, psych nurse, social media sr strategy manager, materials planner, teacher, principal gifts officer, caseworker)? Give summary @ -No Was smoking cessation discussed for >3mins.? @ -No Was critical care preformed (if so, how long)? @ -No Were there social determinants of health that impacted care today? How? (Homelessness, low income, unemployed, alcoholism, drug addiction, trans portation, low edu. Level, literacy, decrease access to med. care, long term, rehab)? @ -No Was there de-escalation of care discussed even if they declined (Discuss DNR or withdrawal of care, Hospice)? DNR status @ -No What co-morbidities impacted this encounter? (DM, HTN, Smoking, COPD, CAD, Cancer, CVA, ARF, Chemo, Hep., AIDS, mental health diagnosis, sleep apnea, morbid obesity)? @ -None Was patient admitted / discharged? Hospital course, mention meds given and route, prescriptions, significant lab abnormalities, going to OR and other pertinent info. @ -Discharge. Patient presented the emergency department for evaluation of cystic area on his back.Laboratory studies obtained revealing no significant leukocytosis, hemoglobin 14.3; CMP is slightly hemolyzed. Wound culture was o btained. The patient is on 2 antibiotics. At this time I do not believe that this is necessarily infectious and I believe that he is able to follow-up outpatient for this. Advised him to continue his antibiotics to completion. He is understanding agreeable plan. Patient stable at time of discharge. Case discussed with Dr. Miller Undiagnosed new problem with uncertain prognosis? @ -No Drug Therapy requiring intensive monitoring for toxicity (Heparin, Nitro, Insulin, Cardizem)? @ -No Were any procedures done? @ -No Diagnosis/symptom? @ -Cyst Acute, or Chronic, or Acute on Chronic? @ -Acute Uncomplicated (without systemic symptoms) or Complicated (systemic symptoms)? @ -Uncomplicated Side effects of treatment? @ -No Exacerbation, Progression, or Severe Exacerbation? @ -No Poses a threat to life or bodily function? How? (Chest pain, [place], [place], pneumonia, PE, COPD, DKA, ARF, appy, cholecystitis, CVA, Diverticulitis, Homicidal, Suicidal, threat to staff... and all critical care pts) @ -No - Lab Data Result diagrams: 06/17/24 17:15 06/17/24 16:32 Lab Results 06/17/24 06/17/24 Range/Units 16:32 17:15 WBC 6.65 (4.50-10.00) 10*3/uL RBC 4.58 (4.40-5.60) 10*6/uL Hgb 14.3 (13.0-17.0) g/dL Hct 40.7 (39.6-50.0) % MCV 88.9 (80.0-97.0) fL MCH 31.2 (27.0-32.0) pg MCHC 35.1 (32.0-37.0) g/dL Plt Count 169 (140-440) 10*3/uL MPV 11.7 (9.5-12.2) fL Immature Gran % (Auto) 0.2 % Neutrophils % 68.7 % Lymphocytes % 24.7 % Monocytes % 4.4 % Eosinophils % 1.7 % Basophils % 0.3 % Immature Gran # 0.01 (0.00-0.04) 10*3/uL Neutrophils # 4.58 (1.80-7.70) 10*3/uL Lymphocytes # 1.64 (0.90-5.00) 10*3/uL Monocytes # 0.29 (0.20-1.00) 10*3/uL Eosinophils # 0.11 (0.04-0.35) 10*3/uL Basophils # 0.02 (0.00-0.10) 10*3/uL Sodium 135 L (137-145) mmol/L Potassium 5.7 H (3.5-5.1) mmol/L Chloride 103 (98-107) mmol/L Carbon Dioxide 25 (22-30) mmol/L Anion Gap 7 mmol/L BUN 22 H (9-20) mg/dL Creatinine 0.84 (0.66-1.25) mg/dL Est GFR (CKD-EPI)AfAm >90 (>60 ml/min/1.73 sqM) Est GFR (CKD-EPI)NonAf >90 (>60 ml/min/1.73 sqM) Glucose 88 (74-99) mg/dL Calcium 9.7 (8.4-10.2) mg/dL Total Bilirubin 1.1 (0.2-1.3) mg/dL AST 50 (17-59) U/L ALT 31 (4-49) U/L Alkaline Phosphatase 71 (38-126) U/L Total Protein 7.6 (6.3-8.2) g/dL Albumin 4.3 (3.5-5.0) g/dL Disposition Clinical Impression: Abscess Disposition: HOME SELF-CARE Condition: Stable Instructions (If sedation given, give patient instructions): Abscess (ED) Additional Instructions: Please follow up with your doctor. Return to the emergency department for new or worsening symptoms. Is patient prescribed a controlled substance at d/c from ED?: No Referrals: None,Stated [Primary Care Provider] - 1-2 days
[2024-06-17 16:51] LABS: ALT 31 U/L (4-49); African American GFR (CKD) >90 (>60 ml/min/1.73 sqM); Anion Gap 7 mmol/L; Blood Urea Nitrogen 22 mg/dL (9-20); Calcium 9.7 mg/dL (8.4-10.2); Carbon Dioxide 25 mmol/L (22-30); Chloride 103 mmol/L (98-107); Glucose 88 mg/dL (74-99); Non-African American GFR(CKD) >90 (>60 ml/min/1.73 sqM); Sodium 135 mmol/L (137-145); Total Bilirubin 1.1 mg/dL (0.2-1.3)
[2024-06-17 16:56] LABS: AST 50 U/L (17-59); Albumin 4.3 g/dL (3.5-5.0); Alkaline Phosphatase 71 U/L (38-126); Potassium 5.7 mmol/L (3.5-5.1); Total Protein 7.6 g/dL (6.3-8.2)
[2024-06-17 18:00] LABS: Basophils # (A) 0.02 10*3/uL (0.00-0.10); Basophils % (A) 0.3 %; Eosinophils # (A) 0.11 10*3/uL (0.04-0.35); Eosinophils % (A) 1.7 %; HCT 40.7 % (39.6-50.0); HGB 14.3 g/dL (13.0-17.0); Lymphocytes # (A) 1.64 10*3/uL (0.90-5.00); Lymphocytes % (A) 24.7 %; MCH 31.2 pg (27.0-32.0); MCHC 35.1 g/dL (32.0-37.0); MCV 88.9 fL (80.0-97.0); Mean Platelet Volume 11.7 fL (9.5-12.2); Monocytes # (A) 0.29 10*3/uL (0.20-1.00); Monocytes % (A) 4.4 %; Neutrophils # (A) 4.58 10*3/uL (1.80-7.70); Neutrophils % (A) 68.7 %; Platelet Count 169 10*3/uL (140-440); RBC 4.58 10*6/uL (4.40-5.60); RDW 12.2 % (11.5-14.5); WBC 6.65 10*3/uL (4.50-10.00)
[2024-06-17 18:37] VITALS: BP 167/93; PULSE 64; RESP 15; TEMP 97.8
== END 2024-06-17 21:06 | disposition home or self-care (01) ==
LOC: EC 15:31
DX: L02.212 Cutaneous abscess of back [any part, except buttock and flank] (principal); B96.89 Other specified bacterial agents as the cause of diseases classified elsewhere; F17.200 Nicotine dependence, unspecified, uncomplicated
CPT/HCPCS: 36415; 80053; 85025; 87070; 87205; 96360; 99283